=== PATIENT | male | born 1950 | race Two or more races ===

== ENCOUNTER 2022-06-20 09:29 | Emergency (ER) | payer OTHER ==
[~2022-06-20] VITALS: Ht 152.4 cm; Wt 73.0 kg
[2022-06-20] MEDS ORDERED: SODIUM CHLORIDE 0.9% 500 ML IVB ONE (09:45)
[2022-06-20] MEDS ORDERED: ONDANSETRON HCL 4 MG/2 ML VIAL IV ONE (09:45)
[2022-06-20] MEDS ORDERED: MORPHINE SULFATE 4 MG/ML SYR/VIAL IV ONE (09:45)
[2022-06-20 10:15] LABS: Basophils # (auto) 0.1 10 ^3/uL (0-0.2); Eosinophils # (auto) 0 10 ^3/uL (0-0.8); Eosinophils % (auto) 0.6 % (0.0-7.0); Hematocrit 44.1 % (41.0-53.0); Hemoglobin 15.4 g/dL (13.5-17.5); Lymphocytes # (auto) 0.8 10 ^3/uL (0.4-5.4); Lymphocytes % (auto) 11.2 % (10.0-50.0); Mean Corpuscular Hemoglobin 31.9 pg (28.0-32.0); Mean Corpuscular Volume 91.1 fL (80.0-100.0); Monocytes # (auto) 0.3 10 ^3/uL (0-1.3); Monocytes % (auto) 4.9 % (0.0-12.0); Neutrophils # (auto) 5.9 10 ^3/uL (1.6-8.6); Neutrophils % (auto) 82.3 % (37.0-80.0); Nucleated Red Blood Cells % 0.1 %; Red Blood Cells 4.84 10^6/uL (4.5-5.90); Red Cell Distribution Width 13.4 % (11.8-14.3); White Blood Cell 7.2 10^3/uL (4.4-10.8)
[2022-06-20 10:28] LABS: INR 0.99 (0.9-1.15); Partial Thromboplastin Time 24.7 sec (24.6-33.4)
[2022-06-20 10:31] LABS: Albumin 3.9 g/dL (3.4-5.0); Calcium 9.5 mg/dL (8.5-10.1); Potassium 4.4 mmol/L (3.5-5.1)
[2022-06-20 10:33] LABS: Total Protein 7.4 g/dL (6.4-8.2)
[2022-06-20] MEDS ORDERED: IOHEXOL 300 MG/ML 100ML BOTTLE IJ ONE (10:58)
[2022-06-20] MEDS ORDERED: KETOROLAC TROMETH 30 MG/ML 1ML VIAL IV ONE (12:15)
[2022-06-20 14:12] VITALS: BP 148/79
[2022-06-20 14:35] LABS: Urine Bacteria NONE SEEN /hpf (None Seen); Urine Mucus FEW (None Seen); Urine Specific Gravity 1.005 (1.001-1.035); Urine WBC 9 /hpf (0 - 3)
[2022-06-20 14:36] LABS: Urine Blood Normal /uL (Negative)
[2022-06-20] MEDS ORDERED: TRAM-297 PO (14:58)
== END 2022-06-20 15:12 | disposition home or self-care (01) ==
LOC: ER 09:29 → EDBD 09:29 → ER 15:12
DX: N20.1 Calculus of ureter (principal); E78.5 Hyperlipidemia, unspecified
CPT/HCPCS: 36415; 74177; 80053; 81001; 82150; 83690; 85025; 85610; 85730; 93005; 96374; 96375; 99285; J2270; J2405; J7040; Q9967